=== PATIENT | female | born 1980 | race Two or more races ===

== ENCOUNTER → 2022-09-10 06:56 | Outpatient (CLI) | payer MEDICAID, SELFPAY ==
[2022-09-10 10:06] LABS: Glucose,Fasting 87 mg/dl (74-100)
[2022-09-10 10:38] LABS: Thyroid Stimulating Hormone 1.44 uIU/mL (0.465-4.68)
[2022-09-10 11:46] LABS: Hemoglobin A1C 5.1 % (4.0-6.0)
[2022-09-11 11:25] LABS: FSH 5.6 mIU/mL (.); LH 7.1 mIU/mL (.); Testosterone,Total 23 ng/dL (8-60)
[2022-09-11 13:16] LABS: Insulin Level Total 10.9 uIU/mL (2.6-24.9)
[2022-09-14 22:11] LABS: Estrogen 127 pg/mL (.)
[2022-10-14 22:10] LABS: Anti Mullerian Hormone (AMH) 1.43
== END ==
PROVIDERS: PCP Pediatrics; Visit Provider Obstetrics & Gynecology
DX: Z78.9 Other specified health status (principal)
CPT/HCPCS: 36415; 82397; 82672; 82947; 83001; 83002; 83036; 83525; 84403; 84443